=== PATIENT | male | born 1955 | race Caucasian/White ===

== ENCOUNTER 2019-11-01 07:55 | Outpatient (CLI) | payer MEDICARE, BC, SELFPAY ==
[2019-11-01 09:12] LABS: Hematocrit 37.5 % (42.0-52.0); Hemoglobin 12.6 g/dL (14.0-18.0); Mean Corpuscular HGB Conc 33.6 g/dl (32-36); Mean Corpuscular Hemoglobin 34.1 pg (26-34); Mean Corpuscular Volume 101.4 fl (80-100); Mean Platelet Volume 11.2 fl (7.4-10.4); Platelet Count Result 182 k/mm3 (150-375); Red Cell Distribution Width 14.2 % (11.5-14.5); White Blood Count 6.5 K/mm3 (4.5-10.0)
[2019-11-01 09:31] LABS: Alanine Aminotransferase 34 U/L (4-50); Albumin Level 4.1 g/dL (3.5-5.1); Alkaline Phosphatase 55 U/L (38-126); Aspartate Amino Transferase 32 U/L (17-59); Bilirubin,Total 0.5 mg/dL (0.2-1.3); Blood Urea Nitrogen 22 mg/dL (9-20); Calcium 9.2 mg/dL (8.4-10.2); Carbon Dioxide 29 mmol/L (22-30); Chloride 103 mmol/L (98-107); Cholesterol 155 mg/dL (0-200); Estimated Glomerular Filt Rate > 60; Glucose 80 mg/dL (75-110); HDL Direct 67 mg/dL; Phenytoin Dilantin 10 ug/mL (10-20); Potassium 4.8 mmol/L (3.4-5.0); Sodium 141 mmol/L (137-145); Triglycerides 68 mg/dL (<150)
[2019-11-01 09:40] LABS: LDL Cholesterol Direct 81 mg/dL
[2019-11-01 10:25] LABS: Prostate Specific Antigen < 0.1 ng/mL (< OR = 4.0)
[2019-11-04 16:29] LABS: Carbamazepine Tegretol 2.5 mcg/mL (4.0-12.0)
== END 2019-11-01 07:56 | disposition home or self-care (01) ==
PROVIDERS: PCP Family Medicine; Visit Provider Family Medicine
DX: E78.2 Mixed hyperlipidemia (principal); R35.1 Nocturia; R53.83 Other fatigue; G40.909 Epilepsy, unspecified, not intractable, without status epilepticus
CPT/HCPCS: 36415; 80053; 80061; 80156; 80184; 80185; 84153; 84443; 85027

== ENCOUNTER 2020-05-23 16:51 | Emergency (ER) | payer MEDICARE, BC, SELFPAY ==
--- NOTE | ~2020-05-23 | CT_ITS ---
EXAMINATION: CT brain wo con DATE: 05/23/2020 18:14 INDICATION: Status post fall. Trauma to the back of the head. Laceration. Loss of consciousness. TECHNIQUE: Computed tomography (CT) of the head was performed without intravenous contrast. The dose- length product was 681.00 mGy-cm. The mA was adjusted according to patient size. Iterative reconstruc tion technique was employed. COMPARISON: CT dated 03/14/2015 FINDINGS: Stable chronic right frontal lobe infarction with encephalomalacia. Prominent dural calcifi cation along the interhemispheric fissure. Mild atrophy of the cerebellum. No ventriculomegaly or mid line shift. Basilar cisterns are patent. No acute intracranial hemorrhage, infarction, mass or mass e ffect. Mild generalized atrophy. IMPRESSION: 1. No acute intracranial abnormality. 2: Chronic right frontal lobe infarction. Reviewed, dictated and finalized at location A.
[2020-05-23 16:59] VITALS: BP 139/73; PULSE 60; RESP 16; TEMP 36.4; O2SAT 100
[2020-05-23 17:20] VITALS: BP 147/94; PULSE 68; RESP 16; O2SAT 100
--- NOTE | 2020-05-23 18:11 | ED.GENADULT ---
HPI - General Adult General Chief complaint: Fall Stated complaint: fell and hit back of head Time Seen by Provider: 05/23/20 17:13 History of Present Illness HPI narrative: Patient is a 64-year-old male who presents ER status post fall. Patient was walking down some steps when he tripped and fell. He hit the ground and lost consciousness. His mother heard the fall. He has a laceration over the posterior aspect of his head. He has no visual changes or nausea or vomiting. Reports mild headache. No extremity weakness or numbness. Is oriented x3. He is not on any blood thinners. He Related Data Allergies Allergy/AdvReac Type Severity Reaction Status Date / Time clarithromycin Allergy Severe Dizziness Verified 05/23/20 17:46 Review of Systems Review of Systems: All systems reviewed & are unremarkable except as noted in HPI and below Constitutional: Constitutional: Denies chills, Denies fever(s) and Denies weakness Eyes: Eyes: Denies change in vision Gastrointestinal: Gastrointestinal: Denies abdominal pain, Denies nausea and Denies vomiting Neurologic: Reports syncope, Reports headache(s), Denies focal weakness and Denies numbness [facility] Past Medical History Medical History (Updated 05/23/20 @ 19:36 by Joseph Linares MD) Epilepsy, unspecified, not intractable, without status epilepticus Personal history of malignant neoplasm of prostate Pure hypercholesterolemia Social History Social History Smoking status: Never smoker Alcohol intake: never Gender identity (if verbalized by the patient): Male Exam Narrative: Exam Narrative: GENERAL: Well-appearing, well-nourished, and in no acute distress. HEAD: Normocephalic, 4 cm laceration to the occipital region of the head, superficial.. Neck: No midline tenderness of the cervical spine. Normal range of motion. CHEST: Clear to auscultation. No respiratory distress. HEART: Regular rate and rhythm. Normal peripheral pulses. ABDOMEN: Soft, nontender, nondistended. EXTREMITIES: Normal range of motion. 2+ edema. SKIN: Warm, dry, no rash. NEURO: No focal deficits. Alert and oriented x3. PSYCH: Normal mood and affect. Course Course Emergency Course: Patient formed results. Discharge home. Lac repaired. Vital Signs Vital signs: Vital Signs Temperature 97.6 F 05/23/20 16:59 Pulse Rate 60 05/23/20 16:59 Respiratory Rate 16 05/23/20 16:59 Blood Pressure 139/73 05/23/20 16:59 Pulse Oximetry 100 05/23/20 16:59 Temperature 97.6 F 05/23/20 16:59 Pulse Rate 57 L 05/23/20 19:00 Respiratory Rate 18 05/23/20 19:00 Blood Pressure 145/87 H 05/23/20 19:00 Pulse Oximetry 100 05/23/20 19:00 Procedures Laceration Laceration 1: Date: 05/23/20 Time: 19:06 Site: scalp Size (cm): 4 Description: linear and clean ====== Skin Level ====== Skin layer closed with: fina ====== Subcutaneous Layer ====== Number of sutures: 5 ====== Muscle Layer ====== ====== Tendon Layer ====== Medical Decision Making Vital Signs Vital Signs: Vital Signs Temperature 97.6 F 05/23/20 16:59 Pulse Rate 60 05/23/20 16:59 Respiratory Rate 16 05/23/20 16:59 Blood Pressure 139/73 05/23/20 16:59 Pulse Oximetry 100 05/23/20 16:59 Temperature 97.6 F 05/23/20 16:59 Pulse Rate 57 L 05/23/20 19:00 Respiratory Rate 18 05/23/20 19:00 Blood Pressure 145/87 H 05/23/20 19:00 Pulse Oximetry 100 05/23/20 19:00 Discharge Plan Discharge Clinical Impression: Laceration Patient Disposition: Home, Self-Care Condition: Stable Instructions: Laceration (ED) Additional Instructions: Return to the ER if you have chest pain or shortness of breath, lose consciousness, he had an infected wound, you have additional concerns. Prescriptions: No Action ibuprofen 600 mg tablet 600 mg PO QID PRN (Re
[2020-05-23 18:15] VITALS: BP 154/83; PULSE 57; RESP 18; O2SAT 100
[2020-05-23 19:00] VITALS: BP 145/87; PULSE 57; RESP 18; O2SAT 100
--- NOTE | 2020-05-23 19:10 | PC.NURSE ---
Report give at bedside to JAYLON Marin
[2020-05-23 19:30] VITALS: BP 159/84; PULSE 58; RESP 14; O2SAT 100
== END 2020-05-23 19:30 | disposition home or self-care (01) ==
PROVIDERS: Emergency Provider Emergency Medicine; PCP Family Medicine
DX: S01.01XA Laceration without foreign body of scalp, initial encounter (principal); G40.909 Epilepsy, unspecified, not intractable, without status epilepticus; E78.5 Hyperlipidemia, unspecified; W10.9XXA Fall (on) (from) unspecified stairs and steps, initial encounter
CPT/HCPCS: 12002; 70450; 99284

== ENCOUNTER 2020-12-05 13:04 | Outpatient (CLI) | payer MEDICARE, BC, SELFPAY | END 2020-12-05 13:05 | disposition home or self-care (01) | LOC: ANHCOVIDVC 13:04 | PROVIDERS: PCP Family Medicine; Visit Provider Family Medicine | DX: Z23 Encounter for immunization (principal) | CPT/HCPCS: 0001A; 91300 ==

== ENCOUNTER 2020-12-12 10:43 | Outpatient (CLI) | payer MEDICARE, BC, SELFPAY ==
[2020-12-12 11:31] LABS: Phenytoin Dilantin 12 ug/mL (10-20)
[2020-12-12 11:35] LABS: Alanine Aminotransferase 29 U/L (4-50); Albumin Level 3.9 g/dL (3.5-5.1); Alkaline Phosphatase 54 U/L (38-126); Anion Gap 4 mmol/L (8-16); Aspartate Amino Transferase 35 U/L (17-59); Bilirubin,Total 0.4 mg/dL (0.2-1.3); Blood Urea Nitrogen 17 mg/dL (9-20); Calcium 9.3 mg/dL (8.4-10.2); Carbon Dioxide 31 mmol/L (22-30); Chloride 103 mmol/L (98-107); Cholesterol 174 mg/dL (0-200); Estimated Glomerular Filt Rate > 60; Glucose 87 mg/dL (75-110); HDL Direct 69 mg/dL; Potassium 4.7 mmol/L (3.4-5.0); Sodium 138 mmol/L (137-145); Triglycerides 86 mg/dL (<150)
[2020-12-12 11:43] LABS: LDL Cholesterol Direct 83 mg/dL
[2020-12-12 12:02] LABS: Prostate Specific Antigen < 0.1 ng/mL (< OR = 4.0)
[2020-12-16 05:37] LABS: Carbamazepine Tegretol 1.8 mcg/mL (4.0-12.0)
== END 2020-12-12 10:44 | disposition home or self-care (01) ==
PROVIDERS: PCP Family Medicine; Visit Provider Nurse Practitioner Family
DX: D64.9 Anemia, unspecified (principal); E78.00 Pure hypercholesterolemia, unspecified; G40.909 Epilepsy, unspecified, not intractable, without status epilepticus; R35.1 Nocturia; Z79.899 Other long term (current) drug therapy; Z85.46 Personal history of malignant neoplasm of prostate; E78.2 Mixed hyperlipidemia; Z12.5 Encounter for screening for malignant neoplasm of prostate
CPT/HCPCS: 36415; 80053; 80061; 80156; 80184; 80185; 84153; 84443; G0103

== ENCOUNTER 2020-12-26 12:56 | Outpatient (CLI) | payer MEDICARE, BC, SELFPAY | END 2020-12-26 12:57 | disposition home or self-care (01) | LOC: ANHCOVIDVC 12:56 | PROVIDERS: PCP Family Medicine; Visit Provider Family Medicine | DX: Z23 Encounter for immunization (principal) | CPT/HCPCS: 0002A; 91300 ==

== ENCOUNTER 2021-02-12 09:51 | Outpatient (CLI) | payer MEDICARE, BC, SELFPAY ==
[2021-02-12 11:07] LABS: Alanine Aminotransferase 28 U/L (4-50); Albumin Level 4.1 g/dL (3.5-5.1); Alkaline Phosphatase 53 U/L (38-126); Anion Gap 5 mmol/L (8-16); Aspartate Amino Transferase 38 U/L (17-59); Bilirubin,Total 0.2 mg/dL (0.2-1.3); Blood Urea Nitrogen 22 mg/dL (9-20); Calcium 9.2 mg/dL (8.4-10.2); Carbon Dioxide 31 mmol/L (22-30); Chloride 101 mmol/L (98-107); Estimated Glomerular Filt Rate > 60; Glucose 69 mg/dL (75-110); Potassium 5.3 mmol/L (3.4-5.0); Sodium 137 mmol/L (137-145)
== END 2021-02-12 09:52 | disposition home or self-care (01) ==
LOC: ANHLAB 10:00
PROVIDERS: PCP Family Medicine; Visit Provider Nurse Practitioner Family
DX: R60.9 Edema, unspecified (principal)
CPT/HCPCS: 36415; 80053

== ENCOUNTER 2021-03-05 15:05 | Outpatient (CLI) | payer MEDICARE, BC, SELFPAY ==
[2021-03-05 16:10] LABS: Anion Gap 8 mmol/L (8-16); Blood Urea Nitrogen 20 mg/dL (9-20); Calcium 9.3 mg/dL (8.4-10.2); Carbon Dioxide 28 mmol/L (22-30); Chloride 100 mmol/L (98-107); Estimated Glomerular Filt Rate > 60; Glucose 105 mg/dL (75-110); Potassium 4.9 mmol/L (3.4-5.0); Sodium 136 mmol/L (137-145)
== END 2021-03-05 15:06 | disposition home or self-care (01) ==
LOC: ANHLAB 15:08
PROVIDERS: PCP Family Medicine; Visit Provider Physician Assistant
DX: E87.5 Hyperkalemia (principal)
CPT/HCPCS: 36415; 80048

== ENCOUNTER 2024-03-22 01:13 | Day surgery (SDC) | payer MEDICARE, SELFPAY ==
[2024-03-05 09:06] VITALS: BMI 22.4
--- NOTE | 2024-03-19 10:27 | PC.NURSE ---
Pt called concerned about prep- specifically the golytely prep. He had read the insert regarding golytely and possible side effects of a seizure. I explained to patient the reasons for that and that any of the preps have the potential if he dehydrates due to vomiting and or not drinking alot of fluids to stay hydrated during the prep. We spoke for 20 minutes reviewing his options for the preps. He decided to stay with the Golytley that is ordered and he picked up. I encouraged him to drink gatorade during the day prior to and after drinking the Golytely. Pt verbalized understanding.
[2024-03-22 10:10] VITALS: BP 123/81; PULSE 72; RESP 18; TEMP 36.1; O2SAT 97; BMI 22.6
[2024-03-22] MEDS: LACTATED RINGERS 1,000 ML 150 ML IV CONT (10:21)
--- NOTE | 2024-03-22 10:24 | PM.HPGS ---
History of Present Illness History of Present Illness Consent: Risks, benefits, and alternatives have been discussed and questions answered. Patient agrees to proceed with procedure. Chief complaint: Family history malignant of digestive organs Narrative: Lauro Webb is a 68 year old male here for screening colonoscopy, father had colon cancer Review of Systems Review of Systems: All systems reviewed & are unremarkable except as noted in HPI and below PMFSH Past Medical History Medical History Epilepsy, unspecified, not intractable, without status epilepticus Personal history of malignant neoplasm of prostate Pure hypercholesterolemia Surgical History Surgical History History of radical prostatectomy Status post cervical spinal fusion Family History Family History Father Hypertension Cerebrovascular accident Family history of diabetes mellitus in first degree relative Family history of malignant neoplasm of gastrointestinal tract Family history of coronary artery disease Mother Family history of thyroid disease Hypertension Social History Social History Smoking status: Never smoker Second hand tobacco smoke exposure: No Alcohol intake: never Substance use: never Substance use type: does not use Living arrangements: alone Occupation/Education: retired Gender identity (if verbalized by the patient): Male Sexual Orientation (if Verbalized by the Patient): Straight or Heterosexual Meds Home Medications and Allergies Home Medications Medication Instructions Recorded Confirmed Type oxazepam 10 mg capsule 10 mg PO QID PRN seizures #30 caps 03/21/21 03/22/24 Rx fluticasone propionate 50 1 spray intranasal DAILY #54.6 mL 01/28/22 03/22/24 Rx mcg/actuation nasal spray,suspension phenytoin sodium extended 100 mg See Rx Instructions .Route 10/16/23 03/22/24 Rx capsule .COMPLEX #270 caps tamsulosin 0.4 mg capsule See Rx Instructions .Route 10/16/23 03/22/24 Rx .COMPLEX #90 caps phenobarbital 64.8 mg tablet 64.8 mg PO DAILY #90 tabs 10/22/23 03/22/24 Rx carbamazepine 100 mg chewable See Rx Instructions .Route 12/10/23 03/22/24 Rx tablet .COMPLEX #450 tabs divalproex 500 mg tablet,delayed See Rx Instructions .Route 12/10/23 03/22/24 Rx release .COMPLEX #90 tabs simvastatin 20 mg tablet 20 mg PO DAILY #90 tabs 12/10/23 03/22/24 Rx Allergies Allergy/AdvReac Type Severity Reaction Status Date / Time clarithromycin Allergy Severe Dizziness Verified 03/22/24 10:09 Vital Signs Vital Signs - 24 hr 03/22/24 10:10 Temperature 96.9 F L Pulse Rate 72 Respiratory Rate 18 Blood Pressure 123/81 Pulse Oximetry 97 Oxygen Delivery Room Air Exam Const: General: comfortable and no acute distress HENMT: Face/Nose/Sinus: Normal nares present Eyes: General: appearance normal, both eyes and all related structures Neck: Neck: no JVD Resp: Auscultation: clear to auscultation bilaterally Cardio: Rate: regular rate Rhythm: regular rhythm GI: Inspection: non-distended GI Palp: Yes Soft to palpation Skin: General skin exam: normal color Neuro: General: gait normal Speech: normal speech Extrem: General: normal to inspection Psych: Mental Status: mental status grossly normal Assessment and Plan Assessment and plan (1) Family history of colon cancer: Code(s): Z80.0 - Family history of malignant neoplasm of digestive organs Status: Acute Assessment and Plan: colonoscopy
--- NOTE | 2024-03-22 10:52 | WPDANESEPPF ---
Anes - Initial Pre Proc Eval Procedure: Operation Date: 03/22/24 11:30 Proposed Procedures p Colonoscopy - Deangelo Diaz MD Date/Time: 03/22/24 10:52 Surgeon: Deangelo Diaz MD Pre Op Diagnosis: Family history malignant of digestive organs Patient Data Age: 68 Gender: M Height: 1.8 m Weight: 73.6 kg Last Vital Signs Temp 96.9 F L 03/22/24 10:10 Pulse 72 03/22/24 10:10 Resp 18 03/22/24 10:10 BP 123/81 03/22/24 10:10 Pulse Ox 97 03/22/24 10:10 O2 Del Method Room Air 03/22/24 10:10 Allergies Allergy/AdvReac Type Severity Reaction Status Date / Time clarithromycin Allergy Severe Dizziness Verified 03/22/24 10:09 Home Medications Medication Instructions Recorded Confirmed Type oxazepam 10 mg capsule 10 mg PO QID PRN seizures #30 caps 03/21/21 03/22/24 Rx fluticasone propionate 50 1 spray intranasal DAILY #54.6 mL 01/28/22 03/22/24 Rx mcg/actuation nasal spray,suspension phenytoin sodium extended 100 mg See Rx Instructions .Route 10/16/23 03/22/24 Rx capsule .COMPLEX #270 caps tamsulosin 0.4 mg capsule See Rx Instructions .Route 10/16/23 03/22/24 Rx .COMPLEX #90 caps phenobarbital 64.8 mg tablet 64.8 mg PO DAILY #90 tabs 10/22/23 03/22/24 Rx carbamazepine 100 mg chewable See Rx Instructions .Route 12/10/23 03/22/24 Rx tablet .COMPLEX #450 tabs divalproex 500 mg tablet,delayed See Rx Instructions .Route 12/10/23 03/22/24 Rx release .COMPLEX #90 tabs simvastatin 20 mg tablet 20 mg PO DAILY #90 tabs 12/10/23 03/22/24 Rx Patient hx anesthesia problems: none Family hx anesthesia problems: none Results Review: All pre-operative results and documents have been reviewed as part of the pre-operative evaluation. [facility] Past Medical History Medical History Epilepsy, unspecified, not intractable, without status epilepticus Personal history of malignant neoplasm of prostate Pure hypercholesterolemia Surgical History Surgical History History of radical prostatectomy Status post cervical spinal fusion Family History Family History Father Hypertension Cerebrovascular accident Family history of diabetes mellitus in first degree relative Family history of malignant neoplasm of gastrointestinal tract Family history of coronary artery disease Mother Family history of thyroid disease Hypertension Social History Social History Smoking status: Never smoker Second hand tobacco smoke exposure: No Alcohol intake: never Substance use: never Substance use type: does not use Living arrangements: alone Occupation/Education: retired Gender identity (if verbalized by the patient): Male Sexual Orientation (if Verbalized by the Patient): Straight or Heterosexual Anes - Eval Final PreProcedure Day of Procedure 03/22/24 10:52 Patient weight: normal Heart: regular rate and rhythm Lungs: clear to auscultation Airway: Mallampati scale class II Neurological: alert and oriented Last oral intake: >/= 8 hours ASA classification: III Emergent: no Anesthetic plan: proceed Anesthesia type and monitoring: general GIVS and standard monitoring Results Review: All pre-operative results and documents have been reviewed as part of the pre-operative evaluation. Hx of seizure disorder, none since 18 yo. ECHO 2020 reviewed w nml LVEF, no . Informed Consent: The patient's anesthetic plan and its attendant risks and benefits were discussed with the patient/family/POA. Questions were solicited and answers provided to the satisfaction of the patient/family/POA.
[2024-03-22 11:32] VITALS: BP 109/67; PULSE 57; RESP 18; O2SAT 98
[2024-03-22 11:42] VITALS: BP 116/71; PULSE 58; RESP 18; O2SAT 100
[2024-03-22 11:52] VITALS: BP 131/76; PULSE 58; RESP 20; O2SAT 100
== END 2024-03-22 12:03 | disposition home or self-care (01) ==
PROVIDERS: PCP Family Medicine; Visit Provider Internal Medicine Gastroenterology
PROC: 0DJD8ZZ Inspection of Lower Intestinal Tract, Via Natural or Artificial Opening Endoscopic (ICD-10-PCS; CPT 45378; principal; 2024-03-22 11:30)
DX: Z12.11 Encounter for screening for malignant neoplasm of colon (principal); D12.3 Benign neoplasm of transverse colon; Z80.0 Family history of malignant neoplasm of digestive organs; G40.909 Epilepsy, unspecified, not intractable, without status epilepticus; E78.00 Pure hypercholesterolemia, unspecified; Z85.46 Personal history of malignant neoplasm of prostate; Z98.1 Arthrodesis status
CPT/HCPCS: 45385; 88305; J2704; J7120

== ENCOUNTER 2024-12-10 10:11 | Outpatient (CLI) | payer MEDICARE, SELFPAY ==
--- OUTSIDE RECORDS SUMMARY | 2024-12-10 10:52 | XMS_ITS | Clinical Summary ---
Author Organization [facility] [place] [address] Address [address] [place] [address] Care Team Providers Care Plan Manager Name Role Phone Emmanuel Rodriguez MD Primary Care Provider Allergies Active Allergy Reactions Criticality Noted Date Comments Clarithromycin Swelling Reaction: SWELLING, Lidocaine Medical History Medical History Date Comments Personal history of other ma lignant neoplasm of skin History of basal cell carcin rafy - (Added by [facility]) Social History Tobacco Use Types Packs/Day Years Used Date Smoking Tobacco: Former Sex and Gender Information Value Date Recorded Sex Assigned at Not on file Legal Sex Male 12:38 AM CHANGE OVER Gender Identity Not on file Sexual Orientation Not on file Obstetrics History Last Filed Vital Signs Vital Sign Reading Time Taken Comments Blood Pressure 129/68 05/09/2015 2:52 PM CDT Pulse 61 05/09/2015 2:52 PM CDT Temperature - - Respiratory Rate - - Oxygen Saturation - - Inhaled Oxygen Concentration - - Weight 78.7 kg (173 lb 6.3 oz) 05/09/2015 2:52 P M CDT Height 180.3 cm (5' 11 ) 05/09/2015 2:52 PM CDT Body Mass Index 24.18 05/09/2015 2:52 PM CDT Plan of Treatment Not on file Insurance MEDICARE [place] Care Teams Plan Manager Relationship Specialty Start Date End Date Emmanuel Rodriguez MD [address] [place] [address] PCP - General Family Medicine 03/27/21
--- OUTSIDE RECORDS SUMMARY | 2024-12-10 10:52 | XMS_ITS | Referral Summary ---
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
--- OUTSIDE RECORDS SUMMARY | 2024-12-10 10:52 | XMS_ITS | Clinical Summary ---
Author Organization [facility] Address [address] [place] [address] Care Team Providers Care Wardrobe Specialist Name Role Phone Unavailable Primary Care Provider Unavailabl e Social History Tobacco Use Types Packs/Day Years Used Date Smoking Tobacco: Never Assessed Sex and Gender Information Value Date Recorded Sex Assigned at Not on file Legal Sex Male 7:07 PM CDT Gender Identity Not on file Sexual Orientation Not on file Plan of Treatment Health Maintenance Due Date Last Done Comments Colorectal Cancer Screening Colonoscopy (10 Years) 1957 Hepatitis C 12/24/1975 DTaP, Tdap and Td Vaccines ( 1 - Tdap) 1976 Zoster Vaccines (1 of 2) 12/24/2007 Pneumococcal Vaccine: 65+ Ye ars (1 of 1 - PCV) 2022 COVID-19 Vaccine ( - 2023-2 5 season) 2024 Influenza Adult (#1) 2024 RSV Immunization or 60+ Years (1 - 1-dose 75+ series) 2032 Meningococcal B Vaccine Aged Out No l onger eligible based on patient's age to complete this topic Meningococcal Vaccine Aged Out No ingrid yasmani eligible based on patient's age to complete this topic RSV Immunizations Under 20 Months Aged Out No longer eligible based on patient's age to complete this topic
[2024-12-10 11:02] LABS: Hematocrit 38.1 % (42.0-52.0); Hemoglobin 12.4 g/dL (14.0-18.0); Mean Corpuscular HGB Conc 32.5 g/dl (32-36); Mean Corpuscular Hemoglobin 33.6 pg (26-34); Mean Corpuscular Volume 103.3 fl (80-100); Mean Platelet Volume 10.9 fl (7.4-10.4); Platelet Count Result 209 k/mm3 (150-375); Red Blood Count 3.69 M/mm3 (4.6-6.20); Red Cell Distribution Width 13.7 % (11.5-14.5); White Blood Count 7.3 K/mm3 (4.5-10.0)
[2024-12-10 11:12] LABS: Alanine Aminotransferase 36 U/L (6-50); Albumin Level 4.1 g/dL (3.5-5.1); Alkaline Phosphatase 59 U/L (38-126); Anion Gap 8 mmol/L (4-12); Aspartate Amino Transferase 36 U/L (17-59); Bilirubin,Total 0.4 mg/dL (0.2-1.3); Blood Urea Nitrogen 28 mg/dL (9-20); Calcium 9.2 mg/dL (8.4-10.2); Carbon Dioxide 29 mmol/L (22-30); Chloride 105 mmol/L (98-107); Cholesterol 191 mg/dL (0-200); Estimated Glomerular Filt Rate > 60; Glucose 94 mg/dL (65-110); HDL Direct 65 mg/dL; Potassium 4.8 mmol/L (3.4-5.0); Sodium 142 mmol/L (137-145); Triglycerides 95 mg/dL (<150)
[2024-12-10 11:24] LABS: LDL Cholesterol Direct 91 mg/dL
[2024-12-10 11:43] LABS: Prostate Specific Antigen < 0.1 ng/mL (< OR = 4.0)
== END 2024-12-10 10:12 | disposition home or self-care (01) ==
LOC: ANHLAB 10:14
PROVIDERS: PCP Family Medicine; Visit Provider Physician Assistant
DX: D64.9 Anemia, unspecified (principal); R35.1 Nocturia; E78.00 Pure hypercholesterolemia, unspecified; R53.83 Other fatigue; Z85.46 Personal history of malignant neoplasm of prostate
CPT/HCPCS: 36415; 80053; 80061; 84153; 84443; 85027

== ENCOUNTER 2025-06-01 09:07 | Outpatient (CLI) | payer MEDICARE, SELFPAY ==
--- OUTSIDE RECORDS SUMMARY | 2025-06-01 09:39 | XMS_ITS | Clinical Summary ---
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
[2025-06-02 10:08] LABS: Carbamazepine (Tegretol) 2.7 ug/mL (4.0-12.0)
== END 2025-06-01 09:08 | disposition home or self-care (01) ==
LOC: ANHLAB 09:08
PROVIDERS: PCP Family Medicine; Visit Provider Family Medicine
DX: G40.909 Epilepsy, unspecified, not intractable, without status epilepticus (principal)
CPT/HCPCS: 80156; 80165; 80184; 80185